=== PATIENT | male | born 1985 | race American Indian/Alaskan Native ===

== ENCOUNTER 2022-02-12 10:00 | Emergency (ER) | payer MEDICAID ==
[2022-02-12] MEDS ORDERED: HALOPERIDOL LACTATE 5 MG/1 ML INJ IM PRN (10:20)
--- NOTE | 2022-02-12 10:21 | Emergency Department Report ---
ED General Adult HPI - General Chief complaint: Psych Stated complaint: PSYCH Time Seen by Provider: 02/12/22 10:19 Source: patient, EMS ( EMS documentation not available at time of chart dictation ) Mode of arrival: Ambulatory Limitations: Other (Patient is developmentally delayed and is a poor historian) - History of Present Illness Initial comments: CAREGIVER TERRANCE CABEZAS [phone]\ This patient is a 36-year-old gentleman with a history of paranoid schizophrenia, supposed to be maintained on Seroquel, Ativan, and divalproate, who presents to the emergency room today with acute psychosis In the emergency room, the patient is acutely psychotic. History obtained by speaking to his caregiver, Mr. Cabezas. Patient is not taking his medications and spitting his medications out. He is reportedly wandering, articulating hallucinations, articulating suicidality, and complaining of seeing demons. As per Mr. 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 Patient himself is acutely psychotic and disorganized, not able to describe the qualitative nature of symptoms, exacerbating factors relieving factors or aggravating factors. -: days(s) Consistency: constant Improves with: none Worsens with: none - Related Data Allergies Allergy/AdvReac Type Severity Reaction Status Date / Time No Known Allergies Allergy Verified 02/12/22 10:04 ED Review of Systems ROS: Stated complaint: PSYCH Other details as noted in HPI Comment: Unobtainable due to pts medical conditions (Review of systems as per caregiver) Constitutional: denies: fever Eyes: denies: eye discharge Respiratory: denies: cough Cardiovascular: denies: chest pain, edema Gastrointestinal: denies: abdominal pain Genitourinary: denies: frequency Psychiatric: as per HPI, suicidal thoughts ED Physical Exam - General Limitations: Other (Psychosis and disorganized behavior) General appearance: anxious - Head Head exam: Present: atraumatic, normocephalic - Eye Eye exam: Present: normal appearance, EOMI. Absent: nystagmus - ENT ENT exam: Present: normal exam, normal orophraynx, mucous membranes moist, normal external ear exam - Neck Neck exam: Present: normal inspection, full ROM. Absent: tenderness, meningismus - Respiratory Respiratory exam: Present: normal lung sounds bilaterally. Absent: respiratory distress, wheezes, rales, rhonchi, stridor, decreased breath sounds - Cardiovascular Cardiovascular Exam: Present: regular rate, normal rhythm, normal heart sounds. Absent: bradycardia, tachycardia, irregular rhythm, systolic murmur, diastolic murmur, rubs, gallop - GI/Abdominal GI/Abdominal exam: Present: soft. Absent: distended, tenderness, guarding, rebound, rigid, pulsatile mass - Rectal Rectal exam: Present: deferred - Extremities Exam Extremities exam: Present: normal inspection, full ROM, other (2+ pulses noted in the bilateral upper and lower extremities. There is no palpable cord. negative Homans sign. Muscular compartments are soft. The pelvis is stable.). Absent: pedal edema, calf tenderness - Back Exam Back exam: Present: normal inspection, full ROM. Absent: tenderness, CVA tenderness (R), CVA tenderness (L), paraspinal tenderness, vertebral tenderness - Neurological Exam Neurological exam: Present: alert, normal gait, other (The patient is awake. The patient is ambulatory with a steady gait. The patient was 4 extremities. There is no facial droop.) - Psychiatric Psychiatric exam: Present: anxious - Skin Skin exam: Present: warm, dry, intact, normal color. Absent: rash ED Course Vital Signs 02/12/22 10:02 Temperature 97.6 F Pulse Rate 66 Blood Pressure 102/59 [Left] O2 Sat by Pulse 98 Oximetry - Reevaluation(s) Reevaluation #1: 02/12/22 13:54 Respiratory rate 14 breaths/min ED Medical Decision Making - Lab Data Result diagrams: 02/12/22 12:33 02/12/22 12:33 Vital Signs 02/12/22 10:02 Temperature 97.6 F Pulse Rate 66 Blood Pressure 102/59 [Left] O2 Sat by Pulse 98 Oximetry Labs 02/12/22 02/12/22 02/12/22 12:33 12:33 12:33 WBC RBC Hgb Hct MCV MCH MCHC RDW Plt Count Lymph % (Auto) [place] % (Auto) Eos % (Auto) Baso % (Auto) Lymph # (Auto) [place] # (Auto) Eos # (Auto) Baso # (Auto) Seg Neutrophils % Seg Neutrophils # Sodium 140 Potassium 4.2 Chloride 97.8 L Carbon Dioxide 27 Anion Gap 19 BUN 11 Creatinine 1.1 Estimated GFR > 60 BUN/Creatinine Ratio 10 Glucose 94 Calcium 9.9 Urine Color Urine Turbidity Urine pH Ur Specific [place] Urine Protein Urine Glucose (UA) Urine Ketones Urine Blood Urine Nitrite Urine Bilirubin Urine Urobilinogen Ur Leukocyte Esterase Urine WBC (Auto) Urine RBC (Auto) Urine Mucus Salicylates < 0.3 L Urine Opiates Screen Urine Methadone Screen Acetaminophen 5.0 L Ur Barbiturates Screen Ur Phencyclidine Scrn Ur Amphetamines Screen U Benzodiazepines Scrn Urine Cocaine Screen U Marijuana (THC) Screen Drugs of Abuse Note Plasma/Serum Alcohol 02/12/22 02/12/22 02/12/22 12:33 12:33 Unknown WBC 11.8 H RBC 5.20 H Hgb 15.7 H Hct 44.4 MCV 85 MCH 30 MCHC 35 H RDW 14.9 Plt Count 233 Lymph % (Auto) 18.8 [place] % (Auto) 8.5 H Eos % (Auto) 0.2 Baso % (Auto) 0.3 Lymph # (Auto) 2.2 [place] # (Auto) 1.0 H Eos # (Auto) 0.0 Baso # (Auto) 0.0 Seg Neutrophils % 72.2 H Seg Neutrophils # 8.5 H Sodium Potassium Chloride Carbon Dioxide Anion Gap BUN Creatinine Estimated GFR BUN/Creatinine Ratio Glucose Calcium Urine Color Yellow Urine Turbidity Clear Urine pH 6.0 Ur Specific [place] 1.014 Urine Protein <15 mg/dl Urine Glucose (UA) Neg Urine Ketones Tr Urine Blood Neg Urine Nitrite Neg Urine Bilirubin Neg Urine Urobilinogen 2.0 Ur Leukocyte Esterase Neg Urine WBC (Auto) < 1.0 Urine RBC (Auto) 2.0 Urine Mucus Few Salicylates Urine Opiates Screen Urine Methadone Screen Acetaminophen Ur Barbiturates Screen Ur Phencyclidine Scrn Ur Amphetamines Screen U Benzodiazepines Scrn Urine Cocaine Screen U Marijuana (THC) Screen Drugs of Abuse Note Plasma/Serum Alcohol < 0.01 02/12/22 Unknown WBC RBC Hgb Hct MCV MCH MCHC RDW Plt Count Lymph % (Auto) [place] % (Auto) Eos % (Auto) Baso % (Auto) Lymph # (Auto) [place] # (Auto) Eos # (Auto) Baso # (Auto) Seg Neutrophils % Seg Neutrophils # Sodium Potassium Chloride Carbon Dioxide Anion Gap BUN Creatinine Estimated GFR BUN/Creatinine Ratio Glucose Calcium Urine Color Urine Turbidity Urine pH Ur Specific [place] Urine Protein Urine Glucose (UA) Urine Ketones Urine Blood Urine Nitrite Urine Bilirubin Urine Urobilinogen Ur Leukocyte Esterase Urine WBC (Auto) Urine RBC (Auto) Urine Mucus Salicylates Urine Opiates Screen Negative Urine Methadone Screen Negative Acetaminophen Ur Barbiturates Screen Negative Ur Phencyclidine Scrn Negative Ur Amphetamines Screen Negative U Benzodiazepines Scrn Negative Urine Cocaine Screen Negative U Marijuana (THC) Screen Negative Drugs of Abuse Note Disclamer Plasma/Serum Alcohol - Medical Decision Making Differential diagnosis, including but not limited to: Psychosis, schizophrenia, medical clearance for psychiatric placement Assessment and plan: 36-year-old gentleman with history of paranoid schizophrenia, who is afebrile, with reassuring vital signs, with an unremarkable external physical examination, nonactionable laboratory studies, 1013 ordered and placed by myself, psychiatric consultation is requested. At this point in time, this patient does not appear to have an immediate medical contraindication to psychiatric admission, evaluation, consultation and placement. Covid swab is ordered in anticipation of psychiatric disposition and placement. The emergency room will follow along as the patient provides the Covid swab. Currently awaiting psychiatric recommendations. Critical care attestation.: If time is entered above; I have spent that time in minutes in the direct care of this critically ill patient, excluding procedure time. ED Disposition Clinical Impression: Medical clearance for psychiatric admission Disposition: [address] [place] [address] Is pt being admited?: No Does the pt Need Aspirin: No Condition: Good
[2022-02-12 10:57] LABS: Amphetamine Screen,Urine Negative; Benzodiazepines Screen,Urine Negative; Cannabinoid Screen,Urine Negative; Cocaine Screen,Urine Negative; Methadone Screen,Urine Negative; Opiate Screen,Urine Negative
[2022-02-12 11:08] LABS: Bilirubin,Urine NEG (Negative); Blood,Urine NEG (Negative); Color,Urine Yellow (Yellow); Mucus,Urine FEW /HPF; Protein,Urine <15 mg/dL mg/dL (Negative); WBC,Urine < 1.0 /HPF (0.0-6.0)
[2022-02-12 12:42] LABS: Basophils % (Auto) 0.3 % (0.0-1.8); Eosinophils % (Auto) 0.2 % (0.0-4.3); Hematocrit 44.4 % (35.5-45.6); Hemoglobin 15.7 gm/dl (11.8-15.2); Lymphocytes # (Auto) 2.2 K/mm3 (1.2-5.4); Lymphocytes % (Auto) 18.8 % (13.4-35.0); Mean Corpuscular HGB Conc 35 % (32-34); Mean Corpuscular Volume 85 fl (84-94); Monocytes % (Auto) 8.5 % (0.0-7.3); Platelet Count 233 K/mm3 (140-440); Red Cell Distribution Width 14.9 % (13.2-15.2)
[2022-02-12 13:01] LABS: BUN/Creatinine Ratio 10; Blood Urea Nitrogen 11 mg/dL (9-20); Calcium 9.9 mg/dL (8.4-10.2); Hemolysis Index 4
--- NOTE | 2022-02-13 09:25 | Consultation ---
History of Present Illness - Reason for Consult Consult date: 02/13/22 Reason for consult: Psychosis - History of Present Psychiatric Illness ED Note: This patient is a 36-year-old gentleman with a history of paranoid schizophrenia, supposed to be maintained on Seroquel, Ativan, and divalproate, who presents to the emergency room today with acute psychosis. In the emergency room, the patient is acutely psychotic. History obtained by speaking to his ca regiver, Mr. Cabezas. Patient is not taking his medications and spitting his medications out. He is reportedly wandering, articulating hallucinations, articulating suicidality, and complaining of seeing demons. As per . 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 Patient himself is acutely psychotic and disorganized, not able to describe the qualitative nature of symptoms, exacerbating factors relieving factors or aggravating factors. The patient was seen this morning. He is refusing to engage or answer questions. Per nurse, " Patient woke up and went to the bathroom. Patient began wandering around the hallways and going in different rooms. Patient pushed code bautista button on the wall. Security and ED staff responded, patient put into room 13." PAST PSYCHIATRIC HISTORY PAST MEDICAL HISTORY: unknown Family Psychiatric History: unknown SOCIAL HISTORY REVIEW OF SYSTEMS MENTAL STATUS EXAMINATION Assessment and Plan (1) Schizophrenia Treatment Plan Haldol 5mg po BID or IM if patient refuse po Sitter: refer to medical Medical: per primary Disposition:Recommend acute psychiatric inpatient treatment. Will follow. Thanks Case staffed with Dr. Doll Medications and Allergies Medications and Allergies Allergies Allergy/AdvReac Type Severity Reaction Status Date / Time No Known Allergies Allergy Verified 02/12/22 15:54 Active Meds: Active Medications Haloperidol Lactate (Haloperidol Lactate 5 Mg/1 Ml Inj) 5 mg IM Q6HR PRN PRN Reason: Agitation Lorazepam (Lorazepam 2 Mg/Ml Vial) 2 mg IM Q4HR PRN PRN Reason: Agitation Mental Status Exam - Vital signs Last Vital Signs Temp 98.0 F 02/13/22 01:32 Pulse 69 02/12/22 19:38 Resp 16 02/12/22 19:38 BP 126/85 02/12/22 19:38 Pulse Ox 99 02/13/22 09:09 Results Result Diagrams: 02/12/22 12:33 02/12/22 12:33 Abnormal lab results 02/12/22 02/12/22 02/12/22 Range/Units 12:33 12:33 12:33 WBC (4.5-11.0) K/mm3 RBC (3.65-5.03) M/mm3 Hgb (11.8-15.2) gm/dl MCHC (32-34) % [place] % (Auto) (0.0-7.3) % [place] # (Auto) (0.0-0.8) K/mm3 Seg Neutrophils % (40.0-70.0) % Seg Neutrophils # (1.8-7.7) K/mm3 Chloride 97.8 L (98-107) mmol/L Salicylates < 0.3 L (2.8-20.0) mg/dL Acetaminophen 5.0 L (10.0-30.0) ug/mL 02/12/22 Range/Units 12:33 WBC 11.8 H (4.5-11.0) K/mm3 RBC 5.20 H (3.65-5.03) M/mm3 Hgb 15.7 H (11.8-15.2) gm/dl MCHC 35 H (32-34) % [place] % (Auto) 8.5 H (0.0-7.3) % [place] # (Auto) 1.0 H (0.0-0.8) K/mm3 Seg Neutrophils % 72.2 H (40.0-70.0) % Seg Neutrophils # 8.5 H (1.8-7.7) K/mm3 Chloride (98-107) mmol/L Salicylates (2.8-20.0) mg/dL Acetaminophen (10.0-30.0) ug/mL All other labs normal.
[2022-02-13] MEDS: LORazepam 2 MG/ML VIAL IM PRN (10:03)
[2022-02-13] MEDS: HALOPERIDOL LACTATE 5 MG/1 ML INJ IM SCH ×2 (10:03→22:00)
[2022-02-13] MEDS: HALOPERIDOL 5 MG TAB PO SCH ×2 (10:03→22:00)
--- NOTE | 2022-02-13 12:44 | Event Note ---
Date: 02/13/22 The patient is seen and examined. He is standing comfortably and in no acute distress. Laboratory studies are unremarkable. Nursing team reports that the patient pushed with a code quiroz button. However, his ER stay has otherwise been uneventful. Covid swab is negative. He remains medically suitable for psychiatric placement in and disposition at this time. Still awaiting medications to be reconciled, will repeat requested nursing team to please reconcile home medications Vital Signs 02/12/22 02/12/22 02/12/22 10:02 11:04 19:38 Temperature 97.6 F 97.2 F L Pulse Rate 66 69 Respiratory 16 Rate Blood Pressure 102/59 126/85 [Left] O2 Sat by Pulse 98 99 99 Oximetry 02/13/22 02/13/22 02/13/22 01:32 09:09 11:29 Temperature 98.0 F 97.8 F Pulse Rate 72 Respiratory 18 Rate Blood Pressure 132/79 [Left] O2 Sat by Pulse 99 99 Oximetry Lab Results 02/12/22 02/12/22 02/12/22 Range/Units 12:33 12:33 12:33 WBC (4.5-11.0) K/mm3 RBC (3.65-5.03) M/mm3 Hgb (11.8-15.2) gm/dl Hct (35.5-45.6) % MCV (84-94) fl MCH (28-32) pg MCHC (32-34) % RDW (13.2-15.2) % Plt Count (140-440) K/mm3 Lymph % (Auto) (13.4-35.0) % [place] % (Auto) (0.0-7.3) % Eos % (Auto) (0.0-4.3) % Baso % (Auto) (0.0-1.8) % Lymph # (Auto) (1.2-5.4) K/mm3 [place] # (Auto) (0.0-0.8) K/mm3 Eos # (Auto) (0.0-0.4) K/mm3 Baso # (Auto) (0.0-0.1) K/mm3 Seg Neutrophils % (40.0-70.0) % Seg Neutrophils # (1.8-7.7) K/mm3 Sodium 140 (137-145) mmol/L Potassium 4.2 (3.6-5.0) mmol/L Chloride 97.8 L (98-107) mmol/L Carbon Dioxide 27 (22-30) mmol/L Anion Gap 19 mmol/L BUN 11 (9-20) mg/dL Creatinine 1.1 (0.8-1.3) mg/dL Estimated GFR > 60 ml/min BUN/Creatinine Ratio 10 % Glucose 94 (75-100) mg/dL Calcium 9.9 (8.4-10.2) mg/dL Urine Color (Yellow) Urine Turbidity (Clear) Urine pH (5.0-7.0) Ur Specific [place] (1.003-1.030) Urine Protein (Negative) mg/dL Urine Glucose (UA) (Negative) mg/dL Urine Ketones (Negative) mg/dL Urine Blood (Negative) Urine Nitrite (Negative) Urine Bilirubin (Negative) Urine Urobilinogen (<2.0) mg/dL Ur Leukocyte Esterase (Negative) Urine WBC (Auto) (0.0-6.0) /HPF Urine RBC (Auto) (0.0-6.0) /HPF Urine Mucus /HPF Salicylates < 0.3 L (2.8-20.0) mg/dL Urine Opiates Screen Urine Methadone Screen Acetaminophen 5.0 L (10.0-30.0) ug/mL Ur Barbiturates Screen Ur Phencyclidine Scrn Ur Amphetamines Screen U Benzodiazepines Scrn Urine Cocaine Screen U Marijuana (THC) Screen Drugs of Abuse Note Plasma/Serum Alcohol (0-0.07) % SARS-CoV-2 (PCR) (Negative) 02/12/22 02/12/22 02/12/22 Range/Units 12:33 12:33 Unknown WBC 11.8 H (4.5-11.0) K/mm3 RBC 5.20 H (3.65-5.03) M/mm3 Hgb 15.7 H (11.8-15.2) gm/dl Hct 44.4 (35.5-45.6) % MCV 85 (84-94) fl MCH 30 (28-32) pg MCHC 35 H (32-34) % RDW 14.9 (13.2-15.2) % Plt Count 233 (140-440) K/mm3 Lymph % (Auto) 18.8 (13.4-35.0) % [place] % (Auto) 8.5 H (0.0-7.3) % Eos % (Auto) 0.2 (0.0-4.3) % Baso % (Auto) 0.3 (0.0-1.8) % Lymph # (Auto) 2.2 (1.2-5.4) K/mm3 [place] # (Auto) 1.0 H (0.0-0.8) K/mm3 Eos # (Auto) 0.0 (0.0-0.4) K/mm3 Baso # (Auto) 0.0 (0.0-0.1) K/mm3 Seg Neutrophils % 72.2 H (40.0-70.0) % Seg Neutrophils # 8.5 H (1.8-7.7) K/mm3 Sodium (137-145) mmol/L Potassium (3.6-5.0) mmol/L Chloride (98-107) mmol/L Carbon Dioxide (22-30) mmol/L Anion Gap mmol/L BUN (9-20) mg/dL Creatinine (0.8-1.3) mg/dL Estimated GFR ml/min BUN/Creatinine Ratio % Glucose (75-100) mg/dL Calcium (8.4-10.2) mg/dL Urine Color Yellow (Yellow) Urine Turbidity Clear (Clear) Urine pH 6.0 (5.0-7.0) Ur Specific [place] 1.014 (1.003-1.030) Urine Protein <15 mg/dl (Negative) mg/dL Urine Glucose (UA) Neg (Negative) mg/dL Urine Ketones Tr (Negative) mg/dL Urine Blood Neg (Negative) Urine Nitrite Neg (Negative) Urine Bilirubin Neg (Negative) Urine Urobilinogen 2.0 (<2.0) mg/dL Ur Leukocyte Esterase Neg (Negative) Urine WBC (Auto) < 1.0 (0.0-6.0) /HPF Urine RBC (Auto) 2.0 (0.0-6.0) /HPF Urine Mucus Few /HPF Salicylates (2.8-20.0) mg/dL Urine Opiates Screen Urine Methadone Screen Acetaminophen (10.0-30.0) ug/mL Ur Barbiturates Screen Ur Phencyclidine Scrn Ur Amphetamines Screen U Benzodiazepines Scrn Urine Cocaine Screen U Marijuana (THC) Screen Drugs of Abuse Note Plasma/Serum Alcohol < 0.01 (0-0.07) % SARS-CoV-2 (PCR) (Negative) 02/12/22 02/13/22 Range/Units Unknown 09:09 WBC (4.5-11.0) K/mm3 RBC (3.65-5.03) M/mm3 Hgb (11.8-15.2) gm/dl Hct (35.5-45.6) % MCV (84-94) fl MCH (28-32) pg MCHC (32-34) % RDW (13.2-15.2) % Plt Count (140-440) K/mm3 Lymph % (Auto) (13.4-35.0) % [place] % (Auto) (0.0-7.3) % Eos % (Auto) (0.0-4.3) % Baso % (Auto) (0.0-1.8) % Lymph # (Auto) (1.2-5.4) K/mm3 [place] # (Auto) (0.0-0.8) K/mm3 Eos # (Auto) (0.0-0.4) K/mm3 Baso # (Auto) (0.0-0.1) K/mm3 Seg Neutrophils % (40.0-70.0) % Seg Neutrophils # (1.8-7.7) K/mm3 Sodium (137-145) mmol/L Potassium (3.6-5.0) mmol/L Chloride (98-107) mmol/L Carbon Dioxide (22-30) mmol/L Anion Gap mmol/L BUN (9-20) mg/dL Creatinine (0.8-1.3) mg/dL Estimated GFR ml/min BUN/Creatinine Ratio % Glucose (75-100) mg/dL Calcium (8.4-10.2) mg/dL Urine Color (Yellow) Urine Turbidity (Clear) Urine pH (5.0-7.0) Ur Specific [place] (1.003-1.030) Urine Protein (Negative) mg/dL Urine Glucose (UA) (Negative) mg/dL Urine Ketones (Negative) mg/dL Urine Blood (Negative) Urine Nitrite (Negative) Urine Bilirubin (Negative) Urine Urobilinogen (<2.0) mg/dL Ur Leukocyte Esterase (Negative) Urine WBC (Auto) (0.0-6.0) /HPF Urine RBC (Auto) (0.0-6.0) /HPF Urine Mucus /HPF Salicylates (2.8-20.0) mg/dL Urine Opiates Screen Negative Urine Methadone Screen Negative Acetaminophen (10.0-30.0) ug/mL Ur Barbiturates Screen Negative Ur Phencyclidine Scrn Negative Ur Amphetamines Screen Negative U Benzodiazepines Scrn Negative Urine Cocaine Screen Negative U Marijuana (THC) Screen Negative Drugs of Abuse Note Disclamer Plasma/Serum Alcohol (0-0.07) % SARS-CoV-2 (PCR) Negative (Negative)
--- NOTE | 2022-02-14 12:19 | Emergency Department Report ---
Blank Doc - Documentation Documentation: 36-year-old male with schizophrenia with acute psychosis awaiting placement. Vital signs unremarkable. Patient has IM as needed medication If he refuses oral dose
[2022-02-15] MEDS: HALOPERIDOL LACTATE 5 MG/1 ML INJ IM SCH ×3 (10:13→22:18)
[2022-02-15] MEDS: HALOPERIDOL 5 MG TAB PO SCH ×2 (10:13→22:18)
--- NOTE | 2022-02-15 12:37 | Progress Note ---
Subjective - Reason for Consult Consult date: 02/15/22 Reason for consult: psychosis - Chief Complaint Chief complaint: The patient was seen this morning. He is still disorganized and pacing. REVIEW OF SYSTEMS MENTAL STATUS EXAMINATION Assessment and Plan (1) Schizophrenia Treatment Plan 1013 Haldol 5mg po BID or IM if patient refuse po Cogentin 0.5mg po BID Sitter: refer to medical Medical: per primary Disposition: recommend acute psychiatric inpatient treatment Will follow. Thanks Case staffed with Dr. Doll Medications and Allergies Mental Status Exam - Vital signs Last Vital Signs Temp 98.2 F 02/15/22 09:06 Pulse 70 02/15/22 09:06 Resp 16 02/15/22 09:06 BP 128/82 02/15/22 09:06 Pulse Ox 98 02/15/22 09:06
--- NOTE | 2022-02-15 13:33 | Emergency Department Report ---
Blank Doc - Documentation Documentation: 36-year-old male with schizophrenia with disorganized thinking this morning as per nurse practitioner note. Patient has p.o. Haldol ordered, p.o. Cogentin, and IM Haldol ordered in case of refusal of medications. Patient refused both p.o. and IM medications this a.m. I spoke to Ivu the nurse taking care of the patient and she states that she did not give IM medication because she did not have security to assist with medication administration. She will reattempt to provide IM Haldol at this time since security is now available. Patient remains on a 1013 with placement pending.
[2022-02-15] MEDS: BENZTROPINE 0.5 MG TAB PO SCH ×2 (22:17→22:18)
[2022-02-16] MEDS: HALOPERIDOL 5 MG TAB PO SCH (09:52)
[2022-02-16] MEDS: HALOPERIDOL LACTATE 5 MG/1 ML INJ IM SCH (09:53)
[2022-02-16] MEDS: BENZTROPINE 0.5 MG TAB PO SCH (09:53)
--- NOTE | 2022-02-16 11:09 | Event Note ---
Date: 02/16/22 vss , no distress , no events over night , awaiting transfer to acute psych , repeat CBC is ordered
--- NOTE | 2022-02-16 11:55 | Progress Note ---
Subjective - Reason for Consult Consult date: 02/16/22 Reason for consult: Psychosis - Chief Complaint Chief complaint: The patient was seen this morning. He is still disorganized. REVIEW OF SYSTEMS MENTAL STATUS EXAMINATION Assessment and Plan (1) Schizophrenia Treatment Plan 1013 Haldol 5mg po BID or IM if patient refuse po Cogentin 0.5mg po BID Sitter: refer to medical Medical: per primary Disposition: recommend acute psychiatric inpatient treatment Will follow. Thanks Case staffed with Dr. Doll Medications and Allergies Mental Status Exam - Vital signs Last Vital Signs Temp 98.9 F 02/16/22 08:33 Pulse 18 L 02/16/22 08:33 Resp 18 02/16/22 08:33 BP 120/66 02/16/22 08:33 Pulse Ox 97 02/16/22 08:33
[2022-02-16 12:16] LABS: Hematocrit 42.5 % (35.5-45.6); Hemoglobin 14.9 gm/dl (11.8-15.2); Mean Corpuscular HGB Conc 35 % (32-34); Mean Corpuscular Volume 87 fl (84-94); Platelet Count 214 K/mm3 (140-440); Red Blood Count 4.88 M/mm3 (3.65-5.03); Red Cell Distribution Width 14.6 % (13.2-15.2)
[2022-02-17] MEDS: BENZTROPINE 0.5 MG TAB PO SCH ×2 (00:18→10:01)
[2022-02-17] MEDS: HALOPERIDOL LACTATE 5 MG/1 ML INJ IM SCH ×2 (00:19→10:01)
[2022-02-17] MEDS: HALOPERIDOL 5 MG TAB PO SCH (10:00)
--- NOTE | 2022-02-17 10:31 | Progress Note ---
Subjective - Reason for Consult Consult date: 02/17/22 Reason for consult: psychosis - Chief Complaint Chief complaint: The patient was seen this morning. He continues to present with disorganized thinking and he is responding to internal stimuli. REVIEW OF SYSTEMS MENTAL STATUS EXAMINATION Assessment and Plan (1) Schizophrenia Treatment Plan 1013 Haldol 5mg po BID or IM if patient refuse po Benztropine 0.5mg po BID Sitter: refer to medical Medical: per primary Disposition: recommend acute psychiatric inpatient treatment Will follow. Thanks Case staffed with Dr. Doll Medications and Allergies Mental Status Exam - Vital signs Last Vital Signs Temp 97.3 F L 02/17/22 08:43 Pulse 63 02/17/22 08:43 Resp 16 02/17/22 08:43 BP 130/77 02/17/22 08:43 Pulse Ox 97 02/17/22 08:43
--- NOTE | 2022-02-17 11:51 | Event Note ---
Date: 02/17/22 Patient is 36 years old male with with schizophrenia. Patient still experiencing disorganized thoughts. Vital signs stable. Labs reviewed and is unremarkable except for mild leukocytosis which is most likely stress related. Patient has been evaluated by psychiatric team and recommended inpatient psychiatric management.
[2022-02-17] MEDS: LORazepam 2 MG/ML VIAL IM PRN (12:10)
[2022-02-17] MEDS ORDERED: traZODone 50 MG TAB PO SCH (22:00)
--- NOTE | 2022-02-18 08:44 | Progress Note ---
Subjective - Reason for Consult Consult date: 02/18/22 Reason for consult: psychosis - Chief Complaint Chief complaint: The patient was seen today. His thoughts are disorganized. He appears to be responding to internal stimuli. He is shaking. He is slow to respond, and just staring most of the evaluation. REVIEW OF SYSTEMS MENTAL STATUS EXAMINATION Assessment and Plan (1) Schizophrenia Treatment Plan 1013 Increase Olanzapine 10mg po daily Increase Trazodone 75mg po qhs Start Vistaril 50mg po BID Sitter: refer to medical Medical: per primary Disposition: recommend acute psychiatric inpatient treatment Will follow. Thanks Case staffed with Dr. Doll Mental Status Exam - Vital signs Last Vital Signs Temp 97.4 F L 02/18/22 03:12 Pulse 89 02/18/22 03:12 Resp 18 02/18/22 03:12 BP 127/82 02/18/22 03:12 Pulse Ox 98 02/18/22 03:12
[2022-02-18] MEDS: BENZTROPINE 0.5 MG TAB PO SCH ×2 (10:21→22:09)
--- NOTE | 2022-02-18 11:35 | Emergency Department Report ---
Blank Doc - Documentation Documentation: 36-year-old male with psychosis still exhibiting psychotic behavior currently on 1013 awaiting placement. Vital signs reviewed. Patient is tolerating p.o. medications as ordered by mental health nurse practitioner
[2022-02-18 17:54] LABS: Hematocrit 44.5 % (35.5-45.6); Hemoglobin 15.4 gm/dl (11.8-15.2); Mean Corpuscular HGB Conc 35 % (32-34); Mean Corpuscular Volume 86 fl (84-94); Platelet Count 236 K/mm3 (140-440); Red Blood Count 5.16 M/mm3 (3.65-5.03); Red Cell Distribution Width 14.7 % (13.2-15.2)
[2022-02-18 18:11] LABS: BUN/Creatinine Ratio 20; Blood Urea Nitrogen 20 mg/dL (9-20); Calcium 9.8 mg/dL (8.4-10.2); Hemolysis Index 89
[2022-02-18] MEDS: traZODone 50 MG TAB PO SCH (22:10)
--- NOTE | 2022-02-19 09:34 | Progress Note ---
Subjective - Reason for Consult Consult date: 02/19/22 Reason for consult: psychosis - Chief Complaint Chief complaint: The patient was seen today. He is acutely psychotic. He is sitting up, awake with his eyes closed. He is shaking. He does not acknowledge my presence. REVIEW OF SYSTEMS MENTAL STATUS EXAMINATION Assessment and Plan (1) Schizophrenia Treatment Plan 1013 Start Klonopin 0.25mg po BID x 3 days Increase Olanzapine 7.5mg po BID Trazodone 75mg po qhs Vistaril 50mg po BID Sitter: refer to medical Medical: per primary Disposition: recommend acute psychiatric inpatient treatment Will follow. Thanks Case staffed with Dr. Doll Mental Status Exam - Vital signs Last Vital Signs Temp 97.3 F L 02/18/22 20:22 Pulse 55 L 02/18/22 20:22 Resp 18 02/18/22 20:22 BP 114/69 02/18/22 20:22 Pulse Ox 100 02/18/22 20:22
[2022-02-19] MEDS: BENZTROPINE 0.5 MG TAB PO SCH ×3 (10:32→22:02)
[2022-02-19] MEDS: clonazePAM 0.5 MG TAB PO SCH ×2 (10:35→22:02)
--- NOTE | 2022-02-19 11:49 | Emergency Department Report ---
Blank Doc - Documentation Documentation: Chart reviewed 36-year-old who remains acutely psychotic and on 1013 awaiting placement. Vital signs reviewed. Seems to be compliant with most p.o. medications. Awaiting placement
[2022-02-19] MEDS: traZODone 50 MG TAB PO SCH (22:02)
[2022-02-19] MEDS: LORazepam 2 MG/ML VIAL IM PRN (22:03)
--- NOTE | 2022-02-20 08:54 | Progress Note ---
Subjective - Reason for Consult Consult date: 02/20/22 Reason for consult: psychosis - Chief Complaint Chief complaint: The patient was seen today. He is still psychotic. The patient is more responsive today, but he is confused. He says he feels "sad and happy." His affect is flat. When asking the patient was he suicidal, he would not answer. He denies hallucinations, but staff notes the patient was seen hallucinating, and moving his head right to left. Will increase olanzapine and start prozac. REVIEW OF SYSTEMS MENTAL STATUS EXAMINATION Assessment and Plan (1) Schizophrenia Treatment Plan 1013 Start Prpozac 20mg po daily Klonopin 0.25mg po BID x 3 days Increase Olanzapine 20mg po daily Trazodone 75mg po qhs Vistaril 50mg po BID Sitter: refer to medical Medical: per primary Disposition: recommend acute psychiatric inpatient treatment Will follow. Thanks Case staffed with Dr. Doll Mental Status Exam - Vital signs Last Vital Signs Temp 98 F 02/19/22 19:30 Pulse 84 02/19/22 19:30 Resp 18 02/19/22 19:30 BP 126/76 02/19/22 19:30 Pulse Ox 100 02/19/22 19:30
[2022-02-20] MEDS ORDERED: FLUoxetine 20 MG CAP PO SCH (10:00)
[2022-02-20] MEDS: clonazePAM 0.5 MG TAB PO SCH ×2 (11:54→22:10)
[2022-02-20] MEDS: BENZTROPINE 0.5 MG TAB PO SCH ×2 (11:55→22:09)
--- NOTE | 2022-02-20 12:37 | Emergency Department Report ---
Blank Doc - Documentation Documentation: Chart reviewed 36-year-old male on a 1013 for acute psychosis. As per MAR patient is refusing doses of oral psychiatric medications. Nurse practitioner has adjusted doses of his psychiatric meds. Vital signs reviewed. Placement pending
[2022-02-20] MEDS: traZODone 50 MG TAB PO SCH (22:10)
[2022-02-21] MEDS ORDERED: ZIPRASIDONE MESYLATE 20 MG VIAL IM PRN (08:33)
--- NOTE | 2022-02-21 08:33 | Progress Note ---
Subjective - Reason for Consult Consult date: 02/21/22 Reason for consult: psychosis - Chief Complaint Chief complaint: The patient was seen today. He is more responsive today, and appears to be improving. He is awake and making good eye contact, but he is still psychotic. He is responding to internal stimuli. He says he feels alright. The patient says he slept good. He denies SI/HI. The patient says he's "blessed and highly favored." He says he's hearing the Songfor's voice talk to him. He says it's saying "praise him and not cheondoism him." Note states the patient has been refusing some doses of his antipsychotics. Geodon IM prn started. Please give if the patient refuses oral antipsychotics. Increased Prozac. REVIEW OF SYSTEMS MENTAL STATUS EXAMINATION Assessment and Plan (1) Schizophrenia Treatment Plan 1013 Start Godeon 100mg q4h prn psycosis/refusal of po meds Increased Prpozac 30mg po daily Klonopin 0.25mg po BID x 3 days Olanzapine 20mg po daily Trazodone 75mg po qhs Vistaril 50mg po BID Sitter: refer to medical Medical: per primary Disposition: recommend acute psychiatric inpatient treatment Will follow. Thanks Case staffed with Dr. Doll Mental Status Exam - Vital signs Last Vital Signs Temp 97.7 F 02/20/22 12:06 Pulse 68 02/20/22 12:06 Resp 20 02/20/22 12:06 BP 109/70 02/20/22 12:06 Pulse Ox 96 02/20/22 15:43
[2022-02-21] MEDS: clonazePAM 0.5 MG TAB PO SCH (10:46)
[2022-02-21] MEDS: BENZTROPINE 0.5 MG TAB PO SCH (10:46)
[2022-02-21] MEDS: FLUoxetine 10 MG TAB PO SCH (10:46)
--- NOTE | 2022-02-21 12:02 | Emergency Department Report ---
Blank Doc - Documentation Documentation: S: No events reported overnight O: Vital Signs - 24 hr 02/20/22 02/20/22 02/21/22 12:06 15:43 08:55 Temperature 97.7 F 98.2 F Pulse Rate 68 65 Respiratory 20 18 Rate Blood Pressure 109/70 113/61 [Left] O2 Sat by Pulse 99 96 97 Oximetry 02/21/22 08:56 Temperature Pulse Rate Respiratory Rate Blood Pressure [Left] O2 Sat by Pulse 97 Oximetry A: Schizophrenia P: 1013/awaiting inpatient
[2022-02-22] MEDS: clonazePAM 0.5 MG TAB PO SCH (03:27)
[2022-02-22] MEDS: BENZTROPINE 0.5 MG TAB PO SCH ×2 (03:27→10:25)
[2022-02-22] MEDS: traZODone 50 MG TAB PO SCH (03:27)
[2022-02-22 09:09] VITALS: BP 112/64
--- NOTE | 2022-02-22 10:07 | Progress Note ---
Subjective - Reason for Consult Consult date: 02/22/22 Reason for consult: psychosis - Chief Complaint Chief complaint: The patient was seen today. The patient is reported as being autistic. He is asleep but easily arouses. He says he feels okay. The patient says "just cold." He says he slept well. The patient denies SI/HI or hallucinations of any kind. I ask him if he felt better than when coming in. The patient replies "a lot better." REVIEW OF SYSTEMS Constitutional: Negative for weight loss ENT: Negative for stridor Respiratory: Negative for cough or hemoptysis All other systems reviewed and are negative MENTAL STATUS EXAMINATION General Appearance and Behavior: Age appropriate, good hygiene, wearing appropriate clothes, good eye contact, calm, cooperative, quiet Cooperation: Participating/engaged, but Guarded Psychomotor Behavior: Psychomotor normal Mood: okay, better Affect and affective range: congruent with stated mood Thought Process: Circumstantial Thought Content: None Speech: soft spoken Suicidal Ideation: Denies Homicidal Ideation: Denies Hallucinations: Denies Delusions: None elicited Impulse Control: Limited Insight and Judgment: Limited insight and judgment Memory: Limited Attention: attentive Orientation: Alert, oriented Assessment and Plan (1) Schizophrenia Treatment Plan d/c 1013 Prozac 30mg po daily Olanzapine 20mg po daily Trazodone 75mg po qhs Vistaril 50mg po BID prn anxiety Sitter: refer to medical Medical: per primary Disposition: Do not recommend acute psychiatric inpatient treatment. The patient instructed to call 911 or return to ER if SI/HI or any fear of endangerment arise. The carrot harvester to further discuss safety plan and give all necessary resources The patient to follow up with outpatient psych in 7 to 14 days upon discharge Will sign off. Thanks Case staffed with Dr. Doll Mental Status Exam - Vital signs Last Vital Signs Temp 98.4 F 02/22/22 09:08 Pulse 60 02/22/22 09:08 Resp 18 02/22/22 09:08 BP 112/64 02/22/22 09:08 Pulse Ox 100 02/22/22 09:09
[2022-02-22] MEDS: FLUoxetine 10 MG TAB PO SCH (10:25)
--- NOTE | 2022-02-22 10:39 | Emergency Department Report ---
Blank Doc - Documentation Documentation: 36-year-old male with autism initially presenting psychotically disorganized. Today as per mental health nurse practitioner patient is improved. As per MAR patient is tolerating his p.o. medications. Patient has been cleared for discharge with discontinuation of 1013.
== END 2022-02-22 15:46 | disposition home or self-care (01) ==
LOC: ED 10:00 → EEVIPCON 10:00 → ED 02-22 15:46
DX: Z04.6 Encounter for general psychiatric examination, requested by authority (principal); F20.9 Schizophrenia, unspecified; Z20.822 Contact with and (suspected) exposure to COVID-19; Z79.899 Other long term (current) drug therapy
CPT/HCPCS: 36415; 80048; 80307; 81001; 85025; 85027; 96372; 99284; J1630; J2060; J3486; Q0177; U0003; 80320; G0480